=== PATIENT | male | born 1975 | race Caucasian/White ===

== ENCOUNTER → 2020-09-13 | Day surgery (SDC) | payer OTHER ==
[~2020-09-13] VITALS: Ht 175.3 cm; Wt 118.0 kg
[~2020-09-13] MED LIST: ASPIRIN EC81 MG PO; CETIRIZINE HCL10 MG PO; GLIPIZIDE5 MG PO; HUMALOG100 UNIT/1 SC; LANTUS100 UNIT/1 SC; LIPITOR10 MG PO; LISINOPRIL5 MG PO; NOVOLIN R100 UNIT/2 SC; PANTOPRAZOLE SO40 MG PO; TRESIBA FL200 UNIT/1 SC
[2020-09-13 07:37] LABS: HCT 43.7 % (42.0-52.0); HGB 15.3 g/dl (13.2-18.0); MCH 30.7 pg (25.0-31.0); MCV 87.8 fL (78.0-100.0); MPV 9.4 fL (6.0-9.5); RBC 4.98 M/uL (4.70-6.00); WBC 6.5 K/uL (4.0-10.5)
[2020-09-13 07:49] LABS: ALBUMIN 3.4 g/dL (3.4-5.0); BILIRUBIN - TOTAL 0.6 mg/dL (0.2-1.0); CREATININE 0.61 mg/dL (0.67-1.17); POTASSIUM 4.3 mmol/L (3.5-5.1); TOTAL PROTEIN 6.4 g/dL (6.4-8.2)
== END | disposition home or self-care (01) ==
LOC: FAS 06:53
PROVIDERS: Surgery
DX: K29.50 Unspecified chronic gastritis without bleeding (principal); K31.9 Disease of stomach and duodenum, unspecified; E78.00 Pure hypercholesterolemia, unspecified; I10 Essential (primary) hypertension; K21.9 Gastro-esophageal reflux disease without esophagitis; Z88.8 Allergy status to other drugs, medicaments and biological substances; Z80.0 Family history of malignant neoplasm of digestive organs
CPT/HCPCS: 36415; 80053; 82962; J2250; J2704; J7120